=== PATIENT | male | born 1965 | race Caucasian/White ===

== ENCOUNTER 2017-03-04 05:46 | Emergency (ER) ==
[2017-03-04 06:01] VITALS: BP 167/91; TEMP 97.3; BMI 19.6
[2017-03-04] MEDS ORDERED: TETANUS DIPHTHERIA TOXOIDS IM ONE (06:11)
--- NOTE | 2017-03-04 06:14 | ED.PDOC ---
General ED Provider: Dr. KAYLEIGH GASPAR-ER Chief Complaint: Bite Stated Complaint: i was bit by something--its itchy Time Seen by Physician: 06:12 Mode of Arrival: Walk-In Information Source: Patient Exam Limitations: No limitations Nursing and Triage Documentation Reviewed and Agree: Yes Skin Complaint Exam - Skin Rash/Itching Complaint/Exam Onset/Duration: 3 days ago Symptoms Are: Still present Initial Severity: Mild Current Severity: Mild Location: left thigh Potential Exposures: Reports: Insect bite Aggravating: Reports: None Alleviating: Reports: None Associated Signs and Symptoms: Denies: Difficulty breathing, Fever, Chills Skin Findings: Present: Urticaria Differential Diagnoses: Other Review of Systems - Review Of Systems Constitutional: Reports: No symptoms Eyes: Reports: No symptoms Ears, Nose, Mouth, Throat: Reports: No symptoms Respiratory: Reports: No symptoms Cardiac: Reports: No symptoms GI: Reports: No symptoms : Reports: No symptoms Musculoskeletal: Reports: No symptoms Skin: Reports: Rash Neurological: Reports: No symptoms Endocrine: Reports: No symptoms Hematologic/Lymphatic: Reports: No symptoms All Other Systems: Reviewed and Negative Past Medical History - Past Medical History Previously Healthy: Yes Endocrine: Reports: Dyslipidemia Cardiovascular: Reports: None Respiratory: Reports: None Hematological: Reports: None Gastrointestinal: Reports: None Genitourinary: Reports: None Neuro/Psych: Reports: None Musculoskeletal: Reports: None Cancer: Reports: None - Surgical History General Surgical History: Reports: None - Family History Family History: Reports: None - Social History Smoking Status: Current every day smoker, Light tobacco smoker Hx Substance Use: No Alcohol Screening: Occasionally Lives: With family - Immunizations Tetanus Shot up to Date: No Physical Exam - Physical Exam Appearance: Well-appearing, No pain distress, Well-nourished Eyes: JENNA ENT: Ears normal, Nose normal, Oropharynx normal Neck: Supple Respiratory: Airway patent Cardiovascular: RRR, Pulses normal, No rub, No murmur GI/: Soft, Nontender, No masses, Bowel sounds normal, No Organomegaly Musculoskeletal: Normal strength, ROM intact, No edema, No calf tenderness Skin: Warm (noted circular area left thigh with erythema) Neurological: Sensation intact, Motor intact, Reflexes intact, Cranial nerves intact, Alert, Oriented Psychiatric: Affect appropriate, Mood appropriate Critical Care Note - Critical Care Note Total Time (mins): 0 Course - Course Orders, Labs, Meds: Orders Category Date Time Status Tetanus, Diphtheria Tox,Adult [Tetanus Diphtheria MEDS 03/04/17 06:11 Once Toxoids] 0.5 ml IM .ONCE ONE Medications Generic Name Dose Route Start Last Admin Trade Name Freq PRN Reason Stop Dose Admin Tetanus/Diphtheria Toxoids 0.5 ml 03/04/17 06:11 Tetanus Diphtheria Toxoids IM 03/04/17 06:12 .ONCE ONE Vital Signs: Temp Pulse Resp BP Pulse Ox 03/04/17 05:47 97.3 F L 82 16 167/91 H 96 Departure - Departure Time of Disposition: 06:13 Disposition: HOME SELF-CARE Discharge Problem: Insect bite Qualifiers: Encounter type: initial encounter Qualifier Code: (W57.XXXA) Bitten or stung by nonvenomous insect and other nonvenomous arthropods, initial encounter Instructions: Insect Bite or Sting (ED) Condition: Good Pt referred to PMD for follow-up: Yes Additional Instructions: clindamycin 150mg tid x 7days--medrol dose pack---f/u with your pcp in 48hrs Allergies/Adverse Reactions: Allergies No Known Allergies Allergy (Verified 03/04/17 06:01) Home Medications: Ambulatory Orders 1 [No Reported Medications] 10/27/15 Disposition Discussed With: Patient
== END 2017-03-04 06:25 | disposition home or self-care (01) ==
LOC: ED 05:46
DX: S70.362A Insect bite (nonvenomous), left thigh, initial encounter (principal); W57.XXXA Bitten or stung by nonvenomous insect and other nonvenomous arthropods, initial encounter; F17.210 Nicotine dependence, cigarettes, uncomplicated
CPT/HCPCS: 90471; 99282

== ENCOUNTER 2018-11-04 13:00 | Outpatient (RCR) ==
[2018-06-27 13:55] VITALS: BMI 19.1
--- NOTE | 2018-10-23 08:33 | RS.OPPTEV2 ---
Date of Note: 10/22/18 Visit #: 1 Number of visits approved by Insurance: pending Date of Evaluation: 10/22/18 Payer Source: Medicaid Date of Onset/Injury/Change in Status: 06/27/18 Surgery Performed?: Yes Treatment Diagnosis: L ankle pain, L ankle effusion, joint stiffness L ankle History of Condition/Mechanism of Injury:: pt suffered a fall sustaining fx of L distal fibula, s/p ORIF L ankle. Continues with decreased ROM L ankle, edema, pain. Prior Level of Function.....Patient was independent with: ADL's, Self Care, Caregiving, Ambulation/Mobility, Community Integration/Access Level of Function: pt states he has been unable to work since Jun 2018 due to fx. Previously worked in [employer] work or [employer] Functional Limitations: Squatting, Ambulation, Community Access/Integration Current Subjective/complaints:: pt states that he is concerned regarding continued swelling as well as decreased motion in ankle. Wants to be able to go get a job. Treatment Side (optional): Left *Precautions: n/a Medical History Medical History: Hypertension, Arthritis Surgical History Comments:: ORIF L lat malleolus 07/03/19 Smoking Status: Current some day smoker Hx Home Medications: none Patient's Goals: be able to get a job Pain Assessment - Pain Description Pain Location: L ankle Pain Description: Aching Current Pain Intensity: 4/10 Functional Outcome Measure LE Functional Scale: 37 - G Codes & Severity Modifier G Codes & Modifier: n/a Source of G Code score: n/a Observation - Observation Inspection: pt presents with edema L ankle Posture: Forward Head, Rounded Shoulders, Increased Thoracic Kyphosis Handedness: Right Girth Measurement Lower: L ankle 37cm, 10 cm above 24.8cm, forefoot 27.2cm. R ankle 25.5 cm, 10 above 22.5cm, forefoot 24cm Gait - Gait Pattern General Gait Pattern Observation: Antalgic Gait Gait Comments: pt amb with cane with antalgic gait with decreased stance time on LLE. pt also with decreased heel strike/toe off gait pattern. General Range of Motion: BUE WFL's. RLE WFL's ankle DF 4, PF30 Eversion 25, Inversion 22. LLE WFL's except L ankle Muscle Strength: BUE 5/5. RLE 5/5. LLE hip flex 4+/5 knee flex 4/5, see ankle eval Ankle ROM: Right WFL's Ankle Muscle Strength: Right WFL's - Left Ankle ROM Left DF with Knee extension: -16 AROM Left DF with Knee flexion: Left Plantar Flexion: 18 (pt very limited requires mod stretch to get to neutral DF) Left Eversion: 6 Left Inversion: 8 Left Ankle/Foot ROM Limitations: Soft Tissue Tightness, Muscle Weakness, Pain Comments: with contract relax was able to get pt to neutral DF. - Left Ankle Strength Left Dorsiflexion: 2+ Poor+ Left Plantar flexion: 3- Fair- Left Eversion: 2+ Poor+ Left Inversion: 2+ Poor+ - Special Tests Talar Tilt Test: Negative Left Palpation Palpation Findings: Tenderness Comments:: achilles, and area of incision as well as medial malleolus tender to palpation Sensation - Sensation Right Upper Extremity: Intact/Normal Left Upper Extremity: Intact/Normal Right Lower Extremity: Intact/Normal Left Lower Extremity: Impaired Comments: n/t L ankle along area of incision Balance - Sitting Balance Static Sitting Balance: Normal Dynamic Sitting Balance: Normal - Standing Balance Static Standing Balance: Good Dynamic Standing Balance: Fair Interventions - Exercise/Activities/Manual Therapy Exercises/Activities: pt performed isometric DF, PF, IV, EV. gentle heel cord stretching as well a retrograde massage. pt also performed contract/relax with focus on DF. Manual Therapy: n/a HOME EXERCISE PROGRAM: pt given written HEP including isometric DF, PF, IV, EV and instructed to ice after ex. - Charges Timed Code Treatment Minutes: 58 Total Treatment Time: 68 Procedures billed for this date of service:: eval low, ex EVALUATION COMPLEXITY LEVEL EVALUATION COMPLEXITY LEVEL: HISTORY: Low, EXAM OF BODY SYSTEMS: Low, CLINICAL PRESENTATION: Low, CLINICAL DECISION MAKING: Low Assessment Assessment: pt presents with L ankle edema, decreased ROM L ankle, decreased strength, decreased gait sequencing. Feel pt would benefit from skilled PT for therex for ROM, strength, massage and modalities to decrease edema, pain, as well as improve flexibility. Patient Education: Home Exercise Program, Education of Plan of Care Rehab Potential: Good Short Term Goals Goal #1: pt independent with initial HEP Goal to be met by: 11/05/18 Goal #2: Decrease edema L ankle Goal to be met by: 11/05/18 Goal #3: Improve ROM L ankle DF 5, PF25, EV 10, IV 10 Goal to be met by: 11/05/18 Goal #4: Decrease pain L ankle < 4/10 Goal to be met by: 11/05/18 Plaster Foreman Goals Goal #1: pt amb without cane with improved gait sequencing, heel strike/toe off Goal to be met by: 11/21/18 Goal #2: Improve ROM L ankle to allow for normal gait pattern Goal to be met by: 11/21/18 Goal #3: Improve LE functional scale >45 Goal to be met by: 11/21/18 Plan - Treatment to be Provided Procedures: Therapeutic Exercises, Therapeutic Activity, Gait Training, Manual Therapy, Massage, Patient Education Modalities: Electrical Stimulation, Cryotherapy, Hot Packs - Treatment Plan Frequency: 2 X week Duration: 4 weeks Dates of Snf Goals: 11/21/18 Expiration date of current Insurance Approval:: pending - Treatment Code (1) Left ankle pain Code(s): M25.572 - PAIN IN LEFT ANKLE AND JOINTS OF LEFT FOOT Qualifiers: Chronicity: chronic Qualified Code(s): M25.572 - Pain in left ankle and joints of left foot; G89.29 - Other chronic pain (2) Left ankle effusion Code(s): M25.472 - EFFUSION, LEFT ANKLE (3) Displaced fracture of lateral malleolus of left fibula, sequela Code(s): S82.62XS - DISP FX OF LATERAL MALLEOLUS OF LEFT FIBULA, SEQUELA (4) Encounter for other orthopedic aftercare Code(s): Z47.89 - ENCOUNTER FOR OTHER ORTHOPEDIC AFTERCARE (5) Stiffness of left ankle joint Code(s): M25.672 - STIFFNESS OF LEFT ANKLE, NOT ELSEWHERE CLASSIFIED
--- NOTE | 2018-10-27 14:00 | RS.OPPTDN ---
Subjective Date of Note: 10/27/18 Visit #: 2 Number of visits approved by Insurance: pending Date of Evaluation: 10/22/18 Payer Source: Medicaid Treatment Diagnosis: L ankle pain, L ankle effusion, joint stiffness L ankle Current Subjective/complaints:: Patient reports moderate pain with walking ,but feels it is getting better. *Precautions: n/a Pain Assessment - Pain Description Pain Location: L ankle Current Pain Intensity: 4-5 with walking - Treatment Modality: Electrical Stim Unattended Parameters/Method Applied: 20 mins.high volt,2 small electrodes to L dorsal aspect of foot and lateral ankle @ 250 pv. - Heat/Cryotherapy Treatment: Hot Pack (concurrent with e-stim) Interventions - Exercise/Activities/Manual Therapy Exercises/Activities: Isometric DF, PF, IV, EV. gentle heel cord stretching.AROM of DF ,ankle circles CW/CCW. Total minutes of Exercise: 25 Manual Therapy: n/a Total minutes of Manual Therapy: 0 HOME EXERCISE PROGRAM: pt given written HEP including isometric DF, PF, IV, EV and instructed to ice after ex. - Charges Timed Code Treatment Minutes: 25 Total Treatment Time: 55 Procedures billed for this date of service:: hp,e-stim,ex 2 ,cp Assessment: Patient has firm end feel for inv/eversion and DF ,but improves as exercises progress.He does reports slight elevation of ankle pain with passive inversion today.He is attentive to recommendations for the care of the ankle injury.He does use the cane intermittently for daily tasks. Patient Education: Education of diagnosis, Body/Joint mechanics, Home Exercise Program, Home Safety, Activity Modification, Education of Plan of Care Patient demonstrates compliance with HEP?: Yes Short Term Goals Goal #1: pt independent with initial HEP Goal to be met by: 11/05/18 Progress towards Goal:: Progressing Goal #2: Decrease edema L ankle Goal to be met by: 11/05/18 Goal #3: Improve ROM L ankle DF 5, PF25, EV 10, IV 10 Goal to be met by: 11/05/18 Goal #4: Decrease pain L ankle < 4/10 Goal to be met by: 11/05/18 Progress towards Goal:: No Change Heel Stainer Goals Goal #1: pt amb without cane with improved gait sequencing, heel strike/toe off Goal to be met by: 11/21/18 Goal #2: Improve ROM L ankle to allow for normal gait pattern Goal to be met by: 11/21/18 Goal #3: Improve LE functional scale >45 Goal to be met by: 11/21/18 Plan Dates of Heel Stainer Goals: 11/21/18 Expiration date of current Insurance Approval:: pending PLAN: Cont. skilled PT to increase L ankle motion and reduce/eliminate pain.
--- NOTE | 2018-10-30 14:07 | RS.OPPTDN ---
Subjective Date of Note: 10/30/18 Visit #: 3 Number of visits approved by Insurance: pending Date of Evaluation: 10/22/18 Payer Source: Medicaid Treatment Diagnosis: L ankle pain, L ankle effusion, joint stiffness L ankle Current Subjective/complaints:: Patient reports increased soreness on the day of last treatment ,but better today.He feels the ankle is , " a little looser. " *Precautions: n/a Pain Assessment - Pain Description Pain Location: L ankle Pain Description: Tightness, Dull, Aching Current Pain Intensity: 0 at rest - Treatment Modality: Electrical Stim Unattended Parameters/Method Applied: 20 mins. high volt,2 small electrodes to dorsum and lateral malleolus region @ 270 pv. Patient Position: Supine - Heat/Cryotherapy Treatment: Cryotherapy (concurrent with e-stim) Interventions - Exercise/Activities/Manual Therapy Exercises/Activities: Isometric DF, PF, IV, EV. gentle heel cord stretching.AROM of DF ,ankle circles CW/CCW. Total minutes of Exercise: 15 Manual Therapy: 25 mins. of deep tissue mobs to L ankle /LE ,emphasis on dorsiflexors Total minutes of Manual Therapy: 25 HOME EXERCISE PROGRAM: pt given written HEP including isometric DF, PF, IV, EV and instructed to ice after ex. - Charges Timed Code Treatment Minutes: 40 Total Treatment Time: 60 Procedures billed for this date of service:: cp,e-stim,ex,manual 2 Assessment: Progressing ,has increased passive Df today,but no change in ev/inv of ankle today.He has les edema present ,no pain currently. Patient Education: Education of diagnosis, Body/Joint mechanics, Home Exercise Program, Home Safety, Activity Modification, Education of Plan of Care Patient demonstrates compliance with HEP?: Yes Short Term Goals Goal #1: pt independent with initial HEP Goal to be met by: 11/05/18 Progress towards Goal:: Progressing Goal #2: Decrease edema L ankle Goal to be met by: 11/05/18 Progress towards Goal:: Progressing Goal #3: Improve ROM L ankle DF 5, PF25, EV 10, IV 10 Goal to be met by: 11/05/18 Progress towards Goal:: Progressing Goal #4: Decrease pain L ankle < 4/10 Goal to be met by: 11/05/18 Progress towards Goal:: Progressing Assisted Goals Goal #1: pt amb without cane with improved gait sequencing, heel strike/toe off Goal to be met by: 11/21/18 Goal #2: Improve ROM L ankle to allow for normal gait pattern Goal to be met by: 11/21/18 Goal #3: Improve LE functional scale >45 Goal to be met by: 11/21/18 Plan Dates of Assisted Goals: 11/21/18 Expiration date of current Insurance Approval:: pending PLAN: Cont. skilled PT to reduce ankle pain ,increase the motion.
--- NOTE | 2018-11-04 14:16 | RS.OPPTDN ---
Subjective Date of Note: 11/04/18 Visit #: 4 Number of visits approved by Insurance: pending Date of Evaluation: 10/22/18 Payer Source: Medicaid Treatment Diagnosis: L ankle pain, L ankle effusion, joint stiffness L ankle Current Subjective/complaints:: Patient pleased with his progress,has no L ankle pain today ,is doing his HEP. *Precautions: n/a Pain Assessment - Pain Description Pain Location: L ankle Pain Description: Tightness Current Pain Intensity: 0 - Treatment Modality: Electrical Stim Unattended Parameters/Method Applied: 20 mins. high volt,2 small electrodes to L foot/ ankle @ 250 pv. Patient Position: Supine - Heat/Cryotherapy Treatment: Hot Pack (con current with e-stim) Interventions - Exercise/Activities/Manual Therapy Exercises/Activities: Isometric DF, PF, IV, EV. gentle heel cord stretching.AROM of DF ,ankle circles CW/CCW. Total minutes of Exercise: 20 Manual Therapy: 20 mins. of deep tissue mobs to L ankle /LE ,emphasis on dorsiflexors/plantarflexors, and AChilles tendon. Total minutes of Manual Therapy: 20 HOME EXERCISE PROGRAM: pt given written HEP including isometric DF, PF, IV, EV and instructed to ice after ex. - Charges Timed Code Treatment Minutes: 40 Total Treatment Time: 60 Procedures billed for this date of service:: hp,e-stim,ex,manual therapy Assessment: Patient has no pain today,tolerates more aggressive stretches,less tender to palpate the lateral aspect of the L ankle today.He is compliant to doing the HEP,gives return demo of each exercise. Patient Education: Education of diagnosis, Body/Joint mechanics, Home Exercise Program, Home Safety, Activity Modification, Education of Plan of Care Patient demonstrates compliance with HEP?: Yes Short Term Goals Goal #1: pt independent with initial HEP Goal to be met by: 11/05/18 Progress towards Goal:: Progressing Goal #2: Decrease edema L ankle Goal to be met by: 11/05/18 Progress towards Goal:: Progressing Goal #3: Improve ROM L ankle DF 5, PF25, EV 10, IV 10 Goal to be met by: 11/05/18 Progress towards Goal:: Progressing Goal #4: Decrease pain L ankle < 4/10 Goal to be met by: 11/05/18 Progress towards Goal:: Progressing Shelter Goals Goal #1: pt amb without cane with improved gait sequencing, heel strike/toe off Goal to be met by: 11/21/18 Goal #2: Improve ROM L ankle to allow for normal gait pattern Goal to be met by: 11/21/18 Progress towards goal: Progressing Goal #3: Improve LE functional scale >45 Goal to be met by: 11/21/18 Plan Dates of Shelter Goals: 11/21/18 Expiration date of current Insurance Approval:: na PLAN: Cont. skilled PT to increase the L ankle motion ,increase strength, eliminate ankle pain with gait on both even/uneven surfaces.
== END 2018-11-04 23:59 ==
PROVIDERS: ATTEND Orthopaedic Surgery
DX: Z47.89 Encounter for other orthopedic aftercare (principal); M25.572 Pain in left ankle and joints of left foot; G89.29 Other chronic pain; M25.672 Stiffness of left ankle, not elsewhere classified; M25.472 Effusion, left ankle; S82.62XS Displaced fracture of lateral malleolus of left fibula, sequela

== ENCOUNTER 2018-11-19 13:00 | Outpatient (RCR) ==
[2018-06-27 13:55] VITALS: BMI 19.1
--- NOTE | 2018-11-06 14:15 | RS.OPPTDN ---
Subjective Date of Note: 11/06/18 Visit #: 5 Number of visits approved by Insurance: pending Date of Evaluation: 10/22/18 Payer Source: Medicaid Treatment Diagnosis: L ankle pain, L ankle effusion, joint stiffness L ankle Current Subjective/complaints:: Patient reports slight increase in pain due to rainy weather. *Precautions: n/a Pain Assessment - Pain Description Pain Location: L ankle Pain Description: Tightness, Dull, Aching Current Pain Intensity: 2-3/10 - Treatment Modality: Electrical Stim Unattended Parameters/Method Applied: 20 mins. high volt,2 small electrodes to L dorsum of foot/L lateral malleolus area,@ 225pv. Patient Position: Supine - Heat/Cryotherapy Treatment: Hot Pack (concurrent with e-stim) Interventions - Exercise/Activities/Manual Therapy Exercises/Activities: 25 mins. of isometrics all directions ,passive stretches to DF/PF,Achilles tendon area.HEP review and recommendations. Total minutes of Exercise: 25 Manual Therapy: 20 mins. of deep tissue mobs to L ankle /LE ,emphasis on dorsiflexors/plantarflexors, and Achilles tendon. Total minutes of Manual Therapy: 20 HOME EXERCISE PROGRAM: pt given written HEP including isometric DF, PF, IV, EV and instructed to ice after ex. - Charges Timed Code Treatment Minutes: 45 Total Treatment Time: 60 Procedures billed for this date of service:: hp,e-stim,ex 2,manual Assessment: Patient progressing ,reports less intense ,less frequent ankle pain with walking.The uneven terrain does cause him more pain due to limited inversion/eversion of the L ankle.He is attentive and motivated to improve. Patient Education: Education of diagnosis, Body/Joint mechanics, Home Exercise Program, Home Safety, Activity Modification, Education of Plan of Care Patient demonstrates compliance with HEP?: Yes Short Term Goals Goal #1: pt independent with initial HEP Goal to be met by: 11/05/18 Progress towards Goal:: Met Goal #2: Decrease edema L ankle Goal to be met by: 11/05/18 Progress towards Goal:: Progressing Goal #3: Improve ROM L ankle DF 5, PF25, EV 10, IV 10 Goal to be met by: 11/05/18 Progress towards Goal:: Progressing Goal #4: Decrease pain L ankle < 4/10 Goal to be met by: 11/05/18 Progress towards Goal:: Partially Met (2-09/14 today ,but inconsistent currently) Snf Goals Goal #1: pt amb without cane with improved gait sequencing, heel strike/toe off Goal to be met by: 11/21/18 Goal #2: Improve ROM L ankle to allow for normal gait pattern Goal to be met by: 11/21/18 (n/a today) Progress towards goal: Progressing Goal #3: Improve LE functional scale >45 Goal to be met by: 11/21/18 Plan Dates of Snf Goals: 11/21/18 Expiration date of current Insurance Approval:: pending PLAN: Cont. skilled PT to reduce /eliminate L ankle pain,strengthen the L ankle for safe gait on all terrain.
--- NOTE | 2018-11-11 15:09 | RS.OPPTDN ---
Subjective Date of Note: 11/11/18 Visit #: 6 Number of visits approved by Insurance: pending Date of Evaluation: 10/22/18 Payer Source: Medicaid Treatment Diagnosis: L ankle pain, L ankle effusion, joint stiffness L ankle Current Subjective/complaints:: Patient reports no pain currently,is pleased with his progress. *Precautions: n/a Pain Assessment - Pain Description Pain Location: L ankle Pain Description: Tightness, Chronic Current Pain Intensity: 0 at rest - Heat/Cryotherapy Treatment: Hot Pack (15 mins. prior to ex) Interventions - Exercise/Activities/Manual Therapy Exercises/Activities: 20 mins. of isometrics all directions ,passive stretches to DF/PF,Achilles tendon area.HEP review and recommendations. Total minutes of Exercise: 20 Manual Therapy: 25 mins. of deep tissue mobs to L ankle /LE ,emphasis on dorsiflexors/plantarflexors, and Achilles tendon. Total minutes of Manual Therapy: 25 HOME EXERCISE PROGRAM: pt given written HEP including isometric DF, PF, IV, EV and instructed to ice after ex. - Charges Timed Code Treatment Minutes: 45 Total Treatment Time: 60 Procedures billed for this date of service:: hp,ex,manual therapy 2 Assessment: Improved AROM in the L ankle ,no pain today.He can benefit from continued PT to increase the eversion /inversion ,resulting in better gait on uneven surfaces. Patient Education: Body/Joint mechanics, Home Exercise Program, Home Safety, Activity Modification Patient demonstrates compliance with HEP?: Yes Short Term Goals Goal #1: pt independent with initial HEP Goal to be met by: 11/05/18 Progress towards Goal:: Met Goal #2: Decrease edema L ankle Goal to be met by: 11/05/18 Progress towards Goal:: Progressing Goal #3: Improve ROM L ankle DF 5, PF25, EV 10, IV 10 Goal to be met by: 11/05/18 Progress towards Goal:: Partially Met (DF 13, PF 21no change in EV/IV) Goal #4: Decrease pain L ankle < 4/10 Goal to be met by: 11/05/18 Progress towards Goal:: Met (2-3/10 today ,but inconsistent currently) Clinical Director Goals Goal #1: pt amb without cane with improved gait sequencing, heel strike/toe off Goal to be met by: 11/21/18 Progress towards goal: Partially Met (uses cane intermittently ,but less the past week per patient report) Goal #2: Improve ROM L ankle to allow for normal gait pattern Goal to be met by: 11/21/18 (n/a today) Progress towards goal: Progressing Goal #3: Improve LE functional scale >45 Goal to be met by: 11/21/18 Plan Dates of Clinical Director Goals: 11/21/18 Expiration date of current Insurance Approval:: pending PLAN: Cont. skilled PT to eliminate ankle pain strengthen for better gait on all surfaces.
--- NOTE | 2018-11-13 14:00 | RS.OPPTDN ---
Subjective Date of Note: 11/13/18 Visit #: 7 Number of visits approved by Insurance: pending Date of Evaluation: 10/22/18 Payer Source: Medicaid Treatment Diagnosis: L ankle pain, L ankle effusion, joint stiffness L ankle Current Subjective/complaints:: Patient reports increased swelling in the L ankle when he is on his feet for longer time periods,but understands that is to be expected.He has less painin general with daily activities. *Precautions: n/a Pain Assessment - Pain Description Pain Description: Dull, Aching Current Pain Intensity: 1-2 Other Comments regarding Pain:: occasional "shooting " pain - Heat/Cryotherapy Treatment: Hot Pack (15 mins. prior to exercises) Interventions - Exercise/Activities/Manual Therapy Exercises/Activities: 20 mins. of bilateral leg press @ 75 ,120,150 # , x 15 reps. each and heel cord stretches using foot plate of the leg press. Total minutes of Exercise: 20 Manual Therapy: 25 mins. of deep tissue mobs to L ankle /LE ,emphasis on dorsiflexors/plantarflexors, and Achilles tendon. Total minutes of Manual Therapy: 25 HOME EXERCISE PROGRAM: pt given written HEP including isometric DF, PF, IV, EV and instructed to ice after ex. - Charges Timed Code Treatment Minutes: 45 Total Treatment Time: 60 Procedures billed for this date of service:: hp,ex.manual 2 Assessment: Patient has improved gait ,minimal pain.The edema is laterally ,but varies with activities.He is aware of D/C plan next week ,has better understanding of HEP. Patient Education: Education of diagnosis, Body/Joint mechanics, Home Exercise Program, Home Safety, Activity Modification, Education of Plan of Care Patient demonstrates compliance with HEP?: Yes Short Term Goals Goal #1: pt independent with initial HEP Goal to be met by: 11/05/18 Progress towards Goal:: Met Goal #2: Decrease edema L ankle Goal to be met by: 11/05/18 Progress towards Goal:: Partially Met (minimal edema laterally) Goal #3: Improve ROM L ankle DF 5, PF25, EV 10, IV 10 Goal to be met by: 11/05/18 Progress towards Goal:: Partially Met (DF 13, PF 21no change in EV/IV) Goal #4: Decrease pain L ankle < 4/10 Goal to be met by: 11/05/18 Progress towards Goal:: Met (2-3/10 today ,but inconsistent currently) [employer] Goals Goal #1: pt amb without cane with improved gait sequencing, heel strike/toe off Goal to be met by: 11/21/18 Progress towards goal: Partially Met (uses cane intermittently ,but less the past week per patient report) Goal #2: Improve ROM L ankle to allow for normal gait pattern Goal to be met by: 11/21/18 (n/a today) Progress towards goal: Progressing Goal #3: Improve LE functional scale >45 Goal to be met by: 11/21/18 Plan Dates of [employer] Goals: 11/21/18 Expiration date of current Insurance Approval:: pending PLAN: Intiate D/C plan next week as he approaches rehab potential.
--- NOTE | 2018-11-19 14:17 | RS.OPPTDC ---
Date of Discharge: 11/19/18 Date of Evaluation: 10/22/18 Number of Visits: 8 Treatment Diagnosis: L ankle pain, L ankle effusion, joint stiffness L ankle Current Level of Function: Independent in community. Current Complaints/Gains: Patient pleased with his progress. Pain Assessment - Pain Description Pain Location: L ankle Pain Description: Tightness, Dull Current Pain Intensity: 0 at rest Functional Outcome Measure LE Functional Scale: 50 - G Codes & Severity Modifier G Codes & Modifier: na Source of G Code score: na Observation - Observation Posture: Normal Gait - Gait Pattern General Gait Pattern Observation: Decrease Weight Shift (L) General Range of Motion: WFL Muscle Strength: 4+ to 5- - Heat/Cryotherapy Treatment: Hot Pack (15mins. prior to ex and manual) Interventions - Exercise/Activities/Manual Therapy Exercises/Activities: 20 mins. of AROM for PF/DF ,inv/eversion ,ankle circles CW /CCW.Prolonged static stretch to heelcord. Total minutes of Exercise: 20 Manual Therapy: 25 mins. of deep tissue mobs to L ankle /LE ,emphasis on dorsiflexors/plantarflexors, and Achilles tendon. Total minutes of Manual Therapy: 25 HOME EXERCISE PROGRAM: pt given written HEP including isometric DF, PF, IV, EV and instructed to ice after ex. - Charges Timed Code Treatment Minutes: 45 Total Treatment Time: 60 Procedures billed for this date of service:: hp,ex ,manual 2 Assessment Assessment: Progressed well ,met rehab goals ,no pain in the L ankle today,good understanding of HEP. Patient Education: Education of diagnosis, Body/Joint mechanics, Home Exercise Program, Home Safety, Activity Modification, Education of Plan of Care Rehab Potential: Good Short Term Goals Goal #1: pt independent with initial HEP Goal to be met by: 11/05/18 Progress towards Goal:: Met Goal #2: Decrease edema L ankle Goal to be met by: 11/05/18 Progress towards Goal:: Met (minimal edema laterally) Goal #3: Improve ROM L ankle DF 5, PF25, EV 10, IV 10 Goal to be met by: 11/05/18 Progress towards Goal:: Partially Met (DF 13, PF 21,inversion 10,eversion 6) Goal #4: Decrease pain L ankle < 4/10 Goal to be met by: 11/05/18 Progress towards Goal:: Met (2-3/10 today ,but inconsistent currently) Forensic Scientist Goals Goal #1: pt amb without cane with improved gait sequencing, heel strike/toe off Goal to be met by: 11/21/18 Progress towards goal: Met (uses cane intermittently ,but less the past week per patient report) Goal #2: Improve ROM L ankle to allow for normal gait pattern Goal to be met by: 11/21/18 (n/a today) Progress towards goal: Met Goal #3: Improve LE functional scale >45 Goal to be met by: 11/21/18 (score of 50) Progress towards goal: Met Plan Reason for Discharge:: All Goals Met (partially met STG #3)
== END 2018-12-05 23:59 ==
PROVIDERS: ATTEND Orthopaedic Surgery
DX: Z47.89 Encounter for other orthopedic aftercare (principal)